=== PATIENT | female | born 1985 | race Caucasian/White ===

== ENCOUNTER 2018-10-31 14:11 | Emergency (ER) | payer BC, OTHER ==
[2018-10-31 14:36] VITALS: BP 133/76
--- NOTE | 2018-10-31 15:11 | UC ---
Respiratory Complaint HPI - HPI Summary HPI Summary: 33-year-old female presents with complaints of shortness of breath, palpitations , and occasional dizziness for the past 5 days. States that she was evaluated at [facility] urgent care 2 days ago and was told she had a cold. Patient states that at the onset of symptoms she did have a mild sore throat that lasted for about a day. States the shortness of breath is worse with ambulation and activity. Has an occasional dry nonproductive cough. Denies fever, chills, nasal congestion, chest pain, abdominal pain, nausea, vomiting, recent surgery, recent confinement, history of DVT or PE, personal or family history of abnormal blood clots - History of Current Complaint Chief Complaint: UCGeneralIllness Stated Complaint: SOB Time Seen by Provider: 10/31/18 14:15 Hx Obtained From: Patient Hx Last Menstrual Period: 3-4 weeks Pain Intensity: 0 - Allergies/Home Medications Allergies/Adverse Reactions: Allergies Allergy/AdvReac Type Severity Reaction Status Date / Time bupropion [From Wellbutrin] Allergy Hallucinati Verified 10/31/18 14:29 ons latex Allergy Rash Verified 10/31/18 14:29 nickel Allergy Rash Verified 10/31/18 14:29 Home Medications: Home Medications FLUoxetine CAP* [Prozac CAP*] 20 mg PO DAILY 10/31/18 [History Confirmed ] traZODone TAB* [Desyrel TAB*] 50 mg PO BEDTIME 10/31/18 [History Confirmed 10/31] PMH/Surg Hx/FS Hx/Imm Hx Psychological History: Anxiety - Surgical History Surgical History: None Surgery Procedure, Year, and Place: heart as a baby, rt eye - Family History Known Family History: Positive: Non-Contributory - Social History Occupation: Employed Full-time Lives: With Family Alcohol Use: None Substance Use Type: None Smoking Status (MU): Never Smoked Tobacco Review of Systems All Other Systems Reviewed And Are Negative: Yes Constitutional: Negative: Fever, Chills Skin: Negative: Rash Eyes: Negative: Drainage, Eye Redness ENT: Positive: Sore Throat. Negative: Ear Ache, Nasal Discharge, Sinus Congestion, Sinus Pain/Tenderness Respiratory: Positive: Shortness Of Breath, Cough. Negative: Other Cardiovascular: Positive: Palpitations. Negative: Chest Pain Gastrointestinal: Negative: Abdominal Pain, Vomiting, Diarrhea, Nausea Genitourinary: Positive: Negative Musculoskeletal: Positive: Negative Neurological: Positive: Other - Dizziness Is Patient Immunocompromised?: No Physical Exam - Summary Physical Exam Summary: GENERAL APPEARANCE: Well developed, well nourished, alert and cooperative, and appears to be in no acute distress. EYES: Conjunctiva clear. No drainage. EARS: External auditory canals and tympanic membranes clear, hearing grossly intact. NOSE: No nasal discharge. THROAT: Pharynx normal. No tonsilar inflammation, swelling, exudate, or lesions. Uvula midline. NECK: Neck supple, non-tender without lymphadenopathy. CARDIAC: Normal S1 and S2. No S3, S4 or murmurs. Rhythm is regular. There is no peripheral edema, cyanosis or pallor. Extremities are warm and well perfused. Capillary refill is less than 2 seconds. Peripheral pulses intact. LUNGS: Clear to auscultation without rales, rhonchi, wheezing or diminished breath sounds. ABDOMEN: Positive bowel sounds. Soft, nondistended, nontender. No guarding or rebound. No masses or hepatosplenomegally. MUSKULOSKELETAL: ROM intact to all extremities. No joint erythema or tenderness. Normal muscular development. Normal gait. SKIN: Skin normal color, texture and turgor with no lesions or eruptions. Triage Information Reviewed: Yes Vital Signs: Initial Vital Signs Temp 100.2 F 10/31/18 14:31 Pulse 98 10/31/18 14:31 Resp 18 10/31/18 14:31 BP 133/76 10/31/18 14:31 Pulse Ox 98 10/31/18 14:31 Vital Signs Reviewed: Yes Diagnostics - EKG Cardiac Rate: NL - Rate 91 Cardiac Rhythm: Sinus: Normal Ectopy: PACs ST Segment: Normal Summary of EKG Findings: Sinus rhythm rate of 91. Single PAC. Short [place] interval 106. No MUKESH or T-wave abnormality. Respiratory Course/Dx - Course Course Of Treatment: 33-year-old female presents with complaints of shortness of breath, palpitations , and occasional dizziness for the past 5 days. States that she was evaluated at [facility] urgent care 2 days ago and was told she had a cold. Patient states that at the onset of symptoms she did have a mild sore throat that lasted for about a day. States the shortness of breath is worse with ambulation and activity. Has an occasional dry nonproductive cough. Denies fever, chills, nasal congestion, chest pain, abdominal pain, nausea, vomiting, recent surgery, recent confinement, history of DVT or PE, personal or family history of abnormal blood clots. Patient had a mildly elevated temperature of 100.1 F. At triage she had a mildly elevated blood pressure otherwise vital signs were stable. Twelve-lead EKG showed a normal sinus rhythm with a single atrial premature complex, a shortened [place] interval of 106, no ST elevation or T-wave abnormalities. Her exam was overall unremarkable with regular heart rate and rhythm and clear bilateral breath sounds. Because of her complaint of sore throat I did check a rapid strep which was negative. With her complaints of exertional dyspnea I asked the nurses to perform a ambulatory pulse ox and patient desaturated to 93% after only a short distance with an increase of her heart rate to 110 and complaints of dyspnea. I discussed with the patient that with her having the desaturation I feel that she should be evaluated in the emergency room at this time as I cannot explain the desaturation without more testing. I have recommended that she go to the ER via ambulance however the patient declined and is electing to go by private vehicle. The patient is clinically sober, free from distracting injury, appears to have insight and reasoning and in my judgment has capacity to make decisions. I have explained that I am concerned that his/her symptoms may represent pulmonary embolism and she verbalizes understanding of my concern and still chooses to go by private vehicle. - Differential Dx/Diagnosis Provider Diagnosis: Dyspnea on exertion Discharge - Sign-Out/Discharge Documenting (check all that apply): Patient Departure All imaging exams completed and their final reports reviewed: No Studies - Discharge Plan Condition: Stable Disposition: HOME-RECOMMEND TO ED Patient Education Materials: Dyspnea (ED) Referrals: Nhi Loco MD [Primary Care Provider] - Additional Instructions: With your oxygen level dropping with ambulation I am recommending that you be evaluated further in the emergency room. You have elected to transport yourself. Please go directly to the emergency room from here. - Billing Disposition and Condition Condition: STABLE Disposition: Home-Recommend to ED
== END 2018-10-31 15:28 | disposition home health service (06) ==
LOC: UCEAST 14:11
DX: R06.00 Dyspnea, unspecified (principal)
CPT/HCPCS: 87651; 93005; 99212; G0463

== ENCOUNTER 2018-10-31 16:40 | Emergency (ER) | payer BC, MEDICAID ==
[2018-10-31] MEDS ORDERED: NS 0.9% 1000 ML** 1,000 ML IV ONE (16:55)
--- NOTE | 2018-10-31 17:22 | ED ---
HPI Cardiac - HPI Summary HPI Summary: This patient is a 33 year old F presenting to ED with a chief complaint of SOB since earlier this week. Pt [facility] to [facility]. She was ambulated on room air and desatted. Pt notes that earlier this week she had heart palpations that went away and that she had multiple heart palpation episodes that last all day. She noted she was dizzy and had SOB earlier this week as well. Pt denies CP, coughing, but reports subjective fever. She does not smoke, consume alcohol, or use drugs. Pts mother notes the pt had heart valve surgery as an infant. Pt states she does not have Hx of blood clots. She is taking nortrel, Prozac, and trazodone. She is allergic to Wellbutrin and gets intense hallucinations and visual/auditory malfunctions after taking it. - History of Current Complaint Chief Complaint: EDShortnessOfBreath Stated Complaint: SOB PER PT Time Seen by Provider: 10/31/18 16:56 Hx Obtained From: Patient, Family/Sliver Lap Tender - mother Hx Last Menstrual Period: 3-4 weeks Onset/Duration: Started Days Ago, Resolved Timing: Lasting Days Current Severity: None Pain Intensity: 0 Pain Scale Used: 0-10 Numeric Character: Other: - palpitations Aggravating Factor(s): Nothing Alleviating Factor(s): Nothing Associated Signs and Symptoms: Positive: Dizziness, Shortness of Breath, Fever - subjective, Palpitations. Negative: Chest Pain, Cough - Allergy/Home Medications Allergies/Adverse Reactions: Allergies Allergy/AdvReac Type Severity Reaction Status Date / Time bupropion [From Wellbutrin] Allergy Hallucinati Verified 10/31/18 14:29 ons latex Allergy Rash Verified 10/31/18 14:29 nickel Allergy Rash Verified 10/31/18 14:29 Home Medications: Home Medications Norethindrone-Ethinyl Estrad [Nortrel 1-35 28 Tablet] 1 tab PO DAILY 10/31/18 [ History Confirmed 10/31/18] PMH/Surg Hx/FS Hx/Imm Hx Sensory History: Denies: Hx Legally Blind, Hx Deafness Opthamlomology History: Denies: Hx Legally Blind EENT History: Denies: Hx Deafness - Surgical History Surgery Procedure, Year, and Place: heart as a baby, rt eye Infectious Disease History: No Infectious Disease History: Denies: Traveled Outside the [place] in Last 30 Days - Family History Known Family History: Positive: Hypertension - grandmother has it, Diabetes - grandmother and father have it - Social History Alcohol Use: None Substance Use Type: Reports: None Smoking Status (MU): Never Smoked Tobacco Review of Systems Positive: Fever - subjective; on vitals, temp is 98.6 F Positive: Palpitations. Negative: Chest Pain Positive: Shortness Of Breath. Negative: Cough Neurological: Other - POSITIVE - DIZZINESS All Other Systems Reviewed And Are Negative: Yes Physical Exam - Summary Physical Exam Summary: GENERAL: Patient is a well-developed and nourished F who is lying comfortable in the stretcher. Patient is not in any acute respiratory distress. HEAD AND FACE: Normocephalic EYES: PERRLA, EOMI x 2. EARS: Hearing grossly intact. MOUTH: Oropharynx within normal limits. NECK: Supple, trachea is midline, no adenopathy, no JVD, no carotid bruit. CHEST: Symmetric, no tenderness at palpation LUNGS: Clear to auscultation bilaterally. No wheezing or crackles. CVS: Regular rate and rhythm, S1 and S2 present, no murmurs or gallops appreciated. ABDOMEN: Soft, non-tender. Bowel sounds are normal. No abnormal abdominal pulsations. EXTREMITIES: Full ROM in all major joints, no edema, no cyanosis or clubbing. NEURO: Alert and oriented x 3. No acute neurological deficits. Speech is normal and follows commands. SKIN: Dry and warm Triage Information Reviewed: Yes Vital Signs On Initial Exam: Initial Vitals Temp Pulse Resp BP Pulse Ox 98.6 F 90 18 140/82 96 10/31/18 16:43 10/31/18 16:43 10/31/18 16:43 10/31/18 16:43 10/31/18 16:43 Vital Signs Reviewed: Yes Diagnostics - Vital Signs Vital Signs Temp Pulse Resp BP Pulse Ox 10/31/18 16:43 98.6 F 90 18 140/82 96 - Laboratory Result Diagrams: 10/31/18 18:02 10/31/18 18:02 Lab Statement: Any lab studies that have been ordered have been reviewed, and results considered in the medical decision making process. - CT CHEST/THORAX CTA CT Interpretation Completed By: Radiologist Summary of CT Findings: IMPRESSION: 1. No visible acute pulmonary embolism. 2. No aortic dissection. THIS REPORT WAS REVIEWED BY DR. JOHN. - EKG 1711 EKG Rhythm: Sinus Rhythm Summary of EKG Findings: EKG showed NSR with rate of 79 BPM, normal intervals, short MS. Re-Evaluation - Re-Evaluation First Eval Re-Evaluation Time: 20:45 Comment: Patient was ambulated around the ED, patient's o2 sat dropped only to 97%. Second Eval Re-Evaluation Time: 21:24 Comment: Results of labs were discussed with the patient. She will be discharged to home and follow up with PCP. Strict return precautions given, patient is hemodynamically stable upon discharge. Patient is agreeable with this plan. Disposition - Course Course Of Treatment: This patient is a 33 year old F presenting to ED with a chief complaint of SOB since earlier this week. Pt went to [facility] previously. She was ambulated on room air and desated. Pt notes she had heart palpations that went away and that she usually has multiple heart palpation episodes that last all day. She noted she was dizzy and had SOB as well. Pt denies CP, coughing, but has a subjective fever. She does not smoke, consume alcohol, or use drugs. Pts mother notes the pt had heart valve and eye surgery as an . Pt states she does not have blood clots. EKG showed NSR with rate of 79 BPM, normal intervals, short MS. Labs showed WBC 12.5, Plt count 122. First and second trop were negative. BNP 83, Beta HCG < 0.60, lactic acid 0.5. UA showed 1+ blood, trace leukocyte esterase, 1+ WBC, 2+ RBC, squamous peith cells present, 1+ bacteria. During ED course, patient was given fluids. CTA CHEST/THORAX IMPRESSION: 1. No visible acute pulmonary embolism. 2. No aortic dissection. Patient was ambulated around the ED, patient's o2 sat dropped only to 97%. Results of labs were discussed with the patient. She will be discharged to home and follow up with PCP. Strict return precautions given, patient is hemodynamically stable upon discharge. Patient is agreeable with this plan. - Diagnoses Provider Diagnoses: SOB (shortness of breath) Is Visit Related: No Discharge - Sign-Out/Discharge Documenting (check all that apply): Patient Departure - discharged Patient Received Moderate/Deep Sedation with Procedure: No - Discharge Plan Condition: Stable Disposition: HOME Patient Education Materials: Shortness of Breath (ED) Referrals: Nhi Loco MD [Primary Care Provider] - 3 Days () Additional Instructions: return to ED for any new or worsening symptoms follow up with primary care physician within 3 days - Billing Disposition and Condition Condition: STABLE Disposition: Home - Attestation Statements Document Initiated by Scribe: Yes Documenting Scribe: MYRNA CUELLO Provider For Whom Yuridiaibe is Documenting (Include Credential): MARK JOHN MD Scribe Attestation: MYRNA Vivas, scribed for MARK JOHN MD on 10/31/18 at 2150. Scribe Documentation Reviewed: Yes Provider Attestation: The documentation as recorded by the MYRNA craig accurately reflects the service I personally performed and the decisions made by me, MARK JOHN MD Status of Scribe Document: Viewed
[2018-10-31 18:26] LABS: ALT 23 U/L (7-52); AST 25 U/L (13-39); Albumin 3.7 g/dL (3.2-5.2); Albumin/Globulin Ratio 1.2 (1-3); Alkaline Phosphatase 71 U/L (34-104); Anion Gap 8 mmol/L (2-11); BUN/Creatinine Ratio 13.7 (8-20); Blood Urea Nitrogen 10 mg/dL (6-24); CO2 Carbon Dioxide 23 mmol/L (22-32); Calcium 8.9 mg/dL (8.6-10.3); Chloride 106 mmol/L (101-111); EGFR African American 112.5 (>60); Glucose 92 mg/dL (70-100); Potassium 4.1 mmol/L (3.5-5.0); Sodium 137 mmol/L (135-145); Total Protein 6.7 g/dL (6.4-8.9)
[2018-10-31 18:28] LABS: Hematocrit 41 % (35-47); Hemoglobin 13.7 g/dL (12.0-16.0); Mean Corpuscular HGB Conc 34 g/dL (31-36); Mean Corpuscular Hemoglobin 30 pg (27-31); Mean Corpuscular Volume 89 fL (80-97); Red Blood Count 4.62 10^6 /uL (3.70-4.87); Red Cell Distribution Width 12 % (10.5-15); White Blood Count 12.5 10^3/uL (3.5-10.8)
[2018-10-31 18:32] LABS: HCG Pregnancy < 0.60 mIU/mL
[2018-10-31 18:36] LABS: Activated Partial Thrombo Time 28.8 seconds (26.0-38.0); INR 0.82 (0.82-1.09)
[2018-10-31] MEDS ORDERED: Iohexol 350* (CONTRAST) 500 ML MDV IV ONE (18:43)
[2018-10-31 18:53] LABS: ABS Basophils 0.1 10^3/ul (0-0.2); ABS Eosinophils 0.2 10^3/ul (0-0.6); ABS Lymphocytes 3.9 10^3/ul (1.0-4.8); ABS Monocytes 0.8 10^3/ul (0-0.8); ABS Neutrophils 7.6 10^3/ul (1.5-7.7); Eosinophil % 1.4 %; Lymphocyte % 30.9 %; Nucleated Red Blood Cells % 0.3
[2018-10-31 18:58] LABS: Urine Appearance Cloudy; Urine Bacteria 1+ (Absent); Urine Bilirubin Negative (Negative); Urine Blood 1+ (Negative); Urine Color Yellow; Urine Glucose Negative (Negative); Urine Ketones Negative (Negative); Urine Nitrite Negative (Negative); Urine Protein Negative (Negative); Urine Red Blood Cell 2+(6-10/hpf) (Absent); Urine Specific Gravity 1.025 (1.010-1.030); Urine Squamous Epithelial Cell Present (Absent); Urine Urobilinogen Negative (Negative); Urine White Blood Cell 1+(6-10/hpf) (Absent)
[2018-10-31 19:01] LABS: Platelet Count 122 10^3/uL (150-450)
[2018-10-31 21:42] VITALS: BP 137/81
== END 2018-10-31 21:41 | disposition home or self-care (01) ==
LOC: ED 16:40
DX: R06.02 Shortness of breath (principal); Z91.040 Latex allergy status
CPT/HCPCS: 36415; 71275; 80053; 81003; 81015; 83605; 83735; 83880; 84484; 84702; 85025; 85610; 85730; 87086; 93005; 96360; 99282; Q9967

== ENCOUNTER 2023-01-17 03:00 | Observation (INO) ==
[2023-01-17] MEDS ORDERED: Iodixanol (CONTRAST) 320 MG/ML 100 ML SDV IV ONE (03:08)
[2023-01-17 03:39] LABS: ABS Basophils 0.1 10^3/uL (0.0-0.1); ABS Eosinophils 0.2 10^3/uL (0.0-0.5); ABS Monocytes 0.6 10^3/uL (0.0-0.9); ABS Neutrophils 2.7 10^3/uL (1.5-7.6); ABS Nucleated RBC 0.01 10^3/ul; Eosinophil % 2.8 %; Hematocrit 42.5 % (35-45); Hemoglobin 14.8 g/dL (11.5-14.3); Lymphocyte % 46.4 %; Mean Corpuscular Hgb Conc 34.8 g/dL (31-36); Mean Corpuscular Volume 86.4 fL (80-97); Mean Platelet Volume 8.2 fL (7.5-11.2); Nucleated Red Blood Cells % 0.1 /100 WBC (0.0-0.4); Platelet Count 244 10^3/uL (150-450); Red Blood Count 4.91 10^6/uL (3.63-4.92); Red Cell Distribution Width 12.1 % (12-17); White Blood Count 6.6 10^3/uL (3.8-11.8)
[2023-01-17 03:48] LABS: Activated Partial Thrombo Time 26.6 seconds (26.0-38.0); INR 0.88 (0.83-1.13)
[2023-01-17 03:55] LABS: ALT 18 U/L (7-52); AST 21 U/L (13-39); Albumin/Globulin Ratio 1.3 (1-3); Alkaline Phosphatase 89 U/L (35-149); Anion Gap 12 mmol/L (2-16); Blood Urea Nitrogen 6 mg/dL (6-24); CO2 Carbon Dioxide 22 mmol/L (22-32); Calcium 8.3 mg/dL (8.6-10.3); Chloride 103 mmol/L (101-111); Cholesterol 132 mg/dL; Creatinine, Serum 0.81 mg/dL (0.51-0.95); Glucose 133 mg/dL (70-100); HDL Cholesterol 42.1 mg/dL; LDL Cholesterol 65 mg/dL; Potassium 3.4 mmol/L (3.5-5.0); Sodium 137 mmol/L (135-145); Triglycerides 126 mg/dL
[2023-01-17 04:01] LABS: HCG Pregnancy < 0.60 mIU/mL
[2023-01-17 04:55] LABS: Urine Appearance Clear; Urine Bilirubin Negative (Negative); Urine Blood Negative (Negative); Urine Color Colorless; Urine Glucose Negative (Negative); Urine Ketones Negative (Negative); Urine Nitrite Negative (Negative); Urine Protein Negative (Negative); Urine Specific Gravity 1.011 (1.002-1.030); Urine Urobilinogen Negative (Negative)
[2023-01-17] MEDS ORDERED: Ondansetron 4 mg VIAL 2 MG/ML 2 ml VIAL IV PRN (06:53)
[2023-01-17] MEDS ORDERED: Potassium Chlor 20 meq TAB.ER PO ONE (07:55)
[2023-01-17] MEDS: Acetylcysteine 600mgCAP(RENAL) PO SCH (09:44)
[2023-01-17] MEDS ORDERED: Gadoteridol (CONTRAST) 279.3 MG/ML 10 ML IV ONE (14:38)
[2023-01-18] MEDS ORDERED: Lactated Ringers 1000 ml BAG 1,000 ML IV ONE (05:57)
[2023-01-18 06:54] LABS: ABS Basophils 0.1 10^3/uL (0.0-0.1); ABS Eosinophils 0.2 10^3/uL (0.0-0.5); ABS Monocytes 0.6 10^3/uL (0.0-0.9); ABS Neutrophils 3.2 10^3/uL (1.5-7.6); Eosinophil % 3.4 %; Hematocrit 41.1 % (35-45); Hemoglobin 14.3 g/dL (11.5-14.3); Lymphocyte % 42.9 %; Mean Corpuscular Hemoglobin 30.2 pg (27-33); Mean Corpuscular Hgb Conc 34.7 g/dL (31-36); Mean Platelet Volume 8.6 fL (7.5-11.2); Platelet Count 239 10^3/uL (150-450); Red Blood Count 4.73 10^6/uL (3.63-4.92); White Blood Count 7.1 10^3/uL (3.8-11.8)
[2023-01-18 07:15] LABS: Calcium 8.3 mg/dL (8.6-10.3); Creatinine, Serum 0.69 mg/dL (0.51-0.95); Magnesium 1.8 mg/dL (1.9-2.7); Potassium 3.7 mmol/L (3.5-5.0)
[2023-01-18] MEDS: Acetylcysteine 600mgCAP(RENAL) PO SCH (08:30)
[2023-01-18 14:57] VITALS: BP 114/77
== END 2023-01-18 18:07 | disposition home or self-care (01) ==
LOC: EDHOLD 03:00 → ED 03:00 → SUATTDRO 06:53 → MEDTELE 20:00
PROVIDERS: ADMIT Hospitalist; ATTEND Internal Medicine